=== PATIENT | female | born 1980 | race Caucasian/White ===

== ENCOUNTER → 2017-11-17 08:13 | Outpatient (CLI) | payer BC, OTHER, SELFPAY ==
--- NOTE | 2017-11-17 | IMM_PTH ---
PATIENT: MEMO MARQUEZ LOC: [facility] U#:[id number] AGE/SX: 45/F ROOM: RE11/17/[address]: Dr. Owen Cleary MD : 1980 BED: DIS: SPEC #: [id number] RECD: 11/21/17 10:41 STATUS: SONU REGrecia #: [id number] TI: 11/17/17 00:[address]: Owen Cleary DEPT: IMMUNOHISTOCHEMISTRY RECD BY: Tova Pfeiffer ENTERED: 11/21/17 10:42 SP TYPE: IMMUNO OTHR DR: No Primary Care Phys Tissues: A - Uterine cervix, NOS B - Endocervical Procedures: p16 (initial) KI-67 (add) PHYSICIAN & INSTITUTION [place] [address] SPECIMEN INFORMATION: Tissue Source: A ? Cervical biopsy 6 o?clock, B - ECC Clinical Info: R87.612 Specimen Number: [id number] CPT code: 70971 x2, 42039 x2 METHODOLOGY: Deparaffinized sections of prefer/formalin-fixed tissue or PAP/DQ stained slides are incubated with monoclonal/polyclonal antibodies/oligonucleotide probes. Localization is made via biotin free immunoperoxidase method. Appropriate controls are performed and reacted as expected. Results on target cell population are indicated in the following table: RESULTS: ANTIBODY / CLONE RESULT Block A P16 (E6H4) positive, focal minimal patchy staining Ki-67 (30-9) positive, low Block B P16 (E6H4) negative Ki-67 (30-9) negative These tests were developed and their performance characteristics determined by [facility]. They may not have been cleared or approved by the U.S. Food and Drug Administration. The FDA has determined that such clearance or approval is not necessary. INTERPRETATION: A. Cervix at 6 o?clock, biopsy: Focal changes suspicious for HPV cytopathic effects. B. ECC: Detached and unoriented fragments of squamous epithelium with focal changes suspicious for HPV cytopathic effects. SJ:marisa 11/22/17
--- NOTE | 2017-11-17 15:00 | CER_PTH ---
PATIENT: MEMO MARQUEZ LOC: [facility] U#:[id number] AGE/SX: 45/F ROOM: RE11/17/[address]: Dr. Owen Cleary MD : 1980 BED: DIS: SPEC #: [id number] RECD: 11/17/17 18:11 STATUS: SONU EDMAR #: [id number] TI: 11/17/17 15:[address]: Owen Cleary DEPT: SURGICAL PATHOLOGY RECD BY: Galdino Cantu ENTERED: 11/20/17 08:10 SP TYPE: CERV OTHR DR: No Primary Care Phys Tissues: A - Uterine cervix, NOS B - Endocervical Procedures: Surgery Specimen Level IV HEADER OPERATION: Colposcopy PRE-OP DIAGNOSIS: R87.612 TISSUE SUBMITTED: A ? Cervical biopsy 6 o?clock, B - ECC MICROSCOPIC DIAGNOSIS A. Cervix, 6 o?clock, biopsy: Fragment of squamous mucosa with focal changes suspicious for HPV cytopathic effects. See comment. B. ECC: Detached and unoriented fragment of squamous epithelium with focal changes suspicious for HPV cytopathic effects. Fragments of benign endocervical epithelium and mucosa with mild chronic inflammation. SJ:rg 11/21/17 COMMENT A & B. Immunohistochemistry ([id number]) for surrogate HPV marker (p16) supports the above diagnosis. Please make reference to previous specimen ([id number]) cervix at 12 o?clock, biopsy with diagnosis of mild squamous dysplasia. Case has been reviewed in consultation with Dr. Douglas who concurs with the above diagnosis. IDC:AM MICROSCOPIC DESCRIPTION Slides are reviewed. GROSS DESCRIPTION A - Received in fixative is one container labeled with the patient's name and designated cervical biopsy 6 o'clock. The specimen consists of multiple irregular fragments of light segovia soft tissue that in aggregate measure 1.2 x 0.3 x <0.1 cm. The specimen is totally submitted in one cassette. B - Received in fixative is one container labeled with the patient's name and designated ECC. The specimen consists of light segovia mucoid material that in aggregate measure 2 x 2 x <0.1 cm. The specimen is totally submitted in one cassette. / AM:marisa 11/20/17 TC:5 CPT: 83503 x2
== END ==
PROVIDERS: Visit Provider Obstetrics & Gynecology
DX: R87.612 Low grade squamous intraepithelial lesion on cytologic smear of cervix (LGSIL) (principal)
CPT/HCPCS: 88305; 88341; 88342

== ENCOUNTER → 2018-05-11 15:45 | Outpatient (CLI) | payer BC, MEDICAID, SELFPAY ==
[2018-05-18 13:37] LABS: HPV Reflexed? NOT INDICATED
== END ==
PROVIDERS: Visit Provider Obstetrics & Gynecology
DX: R87.612 Low grade squamous intraepithelial lesion on cytologic smear of cervix (LGSIL) (principal)
CPT/HCPCS: 88175; G0145

== ENCOUNTER → 2020-09-21 11:23 | Outpatient (CLI) | payer BC, SELFPAY ==
[2016-12-30 16:58] VITALS: BMI 42.4
[2020-09-22 20:07] LABS: Chlamydia By Nucleic Acid AMP Negative (Negative)
[2020-09-22 20:19] LABS: Gonococcus By Nucleic Acid AMP Negative (Negative)
[2020-09-23 21:45] LABS: HPV APTIMA, High Risk Negative (Negative)
== END ==
PROVIDERS: Visit Provider Obstetrics & Gynecology
DX: Z12.4 Encounter for screening for malignant neoplasm of cervix (principal); Z11.3 Encounter for screening for infections with a predominantly sexual mode of transmission
CPT/HCPCS: 87491; 87591; 87624; 88175; G0145

== ENCOUNTER 2021-05-15 15:57 | Emergency (ER) | payer BC, SELFPAY ==
[2021-05-15 15:59] VITALS: BP 140/95; PULSE 102; RESP 14; TEMP 36.6; O2SAT 97; BMI 38.2
--- NOTE | 2021-05-15 16:49 | EX.ED.VIS.PS ---
HPI HPI - Psych History of Present Illness Chief Complaint: Anxiety Informant: patient Narrative Narrative: Patient presents with anxiety and panic attack. She has had a history of this before. She was on meds about 5 years ago. She admits that she tried to overdose on these so they were stopped. She does not remember even what it was. She was on meds for depression until December. She weaned herself off that. But she has been doing well. She does not know why she is very anxious. She had some mild symptoms last night. They went away. They are now back worse today. She is not having chest pain. She feels sometimes a little tight breathing but very mild. She just states she feels anxious and racing thoughts. She is not suicidal or homicidal. PFSH PFSH Home Medications vit,[id number] [Prenatabs FA] 1 tab PO DAILY 10/05/16 [History Last Taken 10/18/16] Ibuprofen [Motrin] 800 mg PO TID PRN PRN #40 tab 01/01/17 [Rx Last Taken Unknown] docusate sodium [Colace] 100 mg PO BID PRN PRN #60 capsule 01/01/17 [Rx Last Taken Unknown] oxycodone 1 - 2 tab PO Q4H PRN PRN #30 tablet 01/01/17 [Rx Last Taken Unknown] hydroxyzine pamoate [Vistaril] 25 mg PO Q6H PRN #20 cap 05/15/21 [Rx Last Taken Unknown] Allergy/AdvReac Type Severity Reaction Status Date / Time adhesive tape Allergy Other Verified 05/15/21 15:59 ceftriaxone [From Rocephin] Allergy Rash Verified 05/15/21 15:59 codeine Allergy Other Verified 05/15/21 15:59 Social History Smoking Status: Former smoker ROS ROS ED Constitutional Constitutional ED: Denies chills or fever(s) Eyes Eyes: Denies blurry vision ENT ENT ED: Denies rhinorrhea Cardiovascular Cardiovascular: Reports palpitations; Denies chest pain Respiratory/Chest Respiratory/Chest: Denies cough or dyspnea Gastrointestinal Gastrointestinal: Denies abdominal pain, nausea or vomiting Genitourinary Genitourinary ED: Denies dysuria Musculoskeletal Musculoskeletal: Denies arthralgias or myalgias Integumentary Denies rash Neurologic Neurologic: Denies headache(s), paresthesias or weakness Hematologic/Lymphatic Hematologic/Lymphatic: Denies easy bleeding or easy bruising Allergic/Immunologic Allergic/Immunologic ED: Denies urticaria EXAM Physical Exam Const Vital Signs: 05/15/21 15:59 Temperature 97.9 F Temperature Source Temporal Pulse Rate 102 H Respiratory Rate 14 Blood Pressure 140/95 H Blood Pressure Mean 110 Pulse Ox 97 Oxygen Delivery Method Room Air Positive well nourished and well developed General Appearance ED: well developed and NAD HEENT normocephalic and atraumatic Eyes PERRL and EOMs intact bilaterally Resp normal respiratory effort and clear to auscultation bilaterally Auscultation: Negative for rales, rhonchi or wheezes Cardio no murmurs Rate: regular rate; Negative for tachycardic Rhythm: regular rhythm GI non-tender and non-distended Palpation: soft Back/Spine no CVA tenderness Neuro oriented x3 Sensorium / Orientation: alert; Negative for lethargic or stuporous Psych mental status grossly normal Psych Narrative: Patient does seem a little anxious. However she makes good eye contact. She is very appropriate. No flight of ideas. No paranoia. Skin Rashes: no rashes MDM MDM MDM Narrative Medical decision making narrative: This patient has a history of anxiety and panic. She is having an episode. I will give her Ativan here. My plan is to get her calm down with 1 or 2 doses of meds. I hope to then be able to get her home and will write for some Vistaril and have her follow-up for ongoing care. Patient is better after Ativan but not completely resolved. I will give her a bit of Vistaril here. We will get her home as planned. We discussed reasons to return and follow-up. Discharge Plan Triage Chief Complaint: Anxiety ED Provider: Bao Pepe Dx/Rx/DC Orders Clinical Impression: Panic attack Instructions: ED Anxiety Reaction Prescriptions: New hydroxyzine pamoate [Vistaril] 25 mg capsule 25 mg PO Q6H PRN (Reason: anxiety) Qty: 20 RF: 0 No Action vit,[id number] [Prenatabs FA] 1 TABLET tablet 1 tab PO DAILY RF: 0 docusate sodium [DOK] 100 MG capsule 100 mg PO BID PRN PRN (Reason: Constipation) Qty: 60 RF: 0 oxycodone 5 MG tablet 1 - 2 tab PO Q4H PRN PRN (Reason: Pain) Qty: 30 RF: 0 Ibuprofen [Motrin] 800 MG tablet 800 mg PO TID PRN PRN (Reason: Pain) Qty: 40 RF: 0 Primary Care Provider: Srini Simpson Referrals: Peña Holman MD [STAFF PHYSICIAN] - 2 Days Care Physician,No Primary [NON-STAFF] - Disposition Disposition: Home, Self Care
--- NOTE | 2021-05-15 17:09 | ED.RN ---
felt that panic attack coming on since last night. pt with chest tightness diff breathing and shaking all over. hx of but off meds for 6 years
[2021-05-15] MEDS: hydrOXYzine PAM 25 MG Capsule PO (17:20)
== END 2021-05-15 17:28 | disposition home or self-care (01) ==
LOC: ED 17:04
PROVIDERS: Emergency Provider Emergency Medicine; PCP Family Medicine
DX: F41.0 Panic disorder [episodic paroxysmal anxiety] (principal); Z87.891 Personal history of nicotine dependence
CPT/HCPCS: 99282

== ENCOUNTER → 2024-09-06 | Outpatient (CLI) | payer OTHER, SELFPAY ==
--- NOTE | 2024-09-06 14:42 | CT_ITS ---
EXAM: CT MAXILLOFACIAL WITHOUT INTRAVENOUS CONTRAST CLINICAL INDICATION: Anosmia. Chronic sinusitis with polyposis. TECHNIQUE: Helically acquired images were obtained of the face without intravenous contrast. This CT exam was performed using one or more of the following dose reduction techniques: automated exposure control, adjustment of the mA and/or kV according to patient size, and/or use of iterative reconstruction technique. RADIATION DOSE: CTDIvol = 33.06 mGy, DLP = 842.11 mGy-cm COMPARISON: No relevant prior studies available. FINDINGS: BONES/JOINTS: Obstructed bilateral ostiomeatal units due to extensive mucosal thickening. No displaced fracture. No discrete lytic or blastic abnormalities. SOFT TISSUES: Unremarkable. No focal subcutaneous swelling. No discrete fluid collections. ORBITS: Unremarkable. Both globes are unremarkable. Extraocular muscles are normal. Retrobulbar fat appears unremarkable. SINUSES: Complete opacification of the ethmoid sinuses, sphenoid sinuses and frontal sinuses. Pronounced mucosal thickening of the maxillary sinuses. MASTOID AIR CELLS: Unremarkable as visualized. Clear. DENTAL: No acute findings. No periodontal osseous erosion. NASAL CAVITY/SEPTUM: Mild right nasal septal deviation. No obstructing mass or polyps along the nasal vault. CT/Sinus/Facial Bone IMPRESSION: 1. Pronounced chronic pansinusitis with obstructive bilateral ostiomeatal units due to mucosal thickening. 2. Mild right nasal septal deviation but no obstructing mass or polyps along the nasal vault. Electronically Signed: Pedro Dinh MD at 15:55 EST ,
== END | disposition home or self-care (01) ==
LOC: CT 14:32
PROVIDERS: PCP Family Medicine; Referring Provider Otolaryngology; Visit Provider Otolaryngology
DX: J32.9 Chronic sinusitis, unspecified (principal)
CPT/HCPCS: 70486

== ENCOUNTER 2024-10-07 12:24 | Day surgery (SDC) | payer OTHER, SELFPAY ==
[2024-10-07] VITALS (9 sets, daily range): BP systolic 108–146; BP diastolic 72–95; PULSE 68–84; RESP 16–20; TEMP 36.1–36.8; O2SAT 90–100; BMI 42.5
[2024-10-07] MEDS: Oxymetazoline 0.05% 1 SPRAY SPRAY.BTL NASAL (12:49)
[2024-10-07] MEDS: 0.9% Normal Saline (1000mL) 1,000 ML 15 ML IV (12:50)
--- NOTE | 2024-10-07 12:52 | PRE.ANES_ITS ---
ASA Classification* ASA Classification ASA Classification: 3 Assessment & Plan Anesthesia* Anesthesia Assessment Anesthesia Assessment: Discussed sedation and/or anesthesia options, risks, benefits, and alternatives with patient/parents/legal guardian/POA. Questions invited. The patient/parents/legal guardian/POA seems to understand and agrees to proceed with anesthesia plan. Reviewed the physical assessment, medical history, allergy history and patient home medications list prior to surgery/procedure/anesthetic and documented any changes. Performed airway and anesthesia risk assessments. Anesthesia Type Anesthesia Type: General Anesthesia Focused Assessment* Temperature: 98.3 F Pulse Rate: 84 Blood Pressure: 134/95 Respiratory Rate: 18 Pulse Ox: 100 Airway Assessment Mouth opens: >3 cm Mallampati Score: II Focused Labs Anesthesia Preop lab: CBC WBC 14.8 K/mm3 (4.4-11.0) H 01/01/17 05:45 RBC 3.46 M/mm3 (4.2-5.4) L 01/01/17 05:45 Hgb 10.1 g/dl (12.0-15.0) L 01/01/17 05:45 Hct 31.2 % (37-47) L 01/01/17 05:45 Plt Count 164 K/mm3 (150-450) 01/01/17 05:45 CHEMISTRY COAG Urine Test Pending 10/07/24 12:35 Pre-Assessment Diagnosis/Proposed Procedure Planned Operative Procedure(s): FESS WITH NAVIGATION Anesthesia History Anesthesia History - senior application software engineer: Anesthesia History - senior application software engineer Hx Hospitalization No 10/02/24 08:30 Any Problems With Anesthesia No 10/02/24 08:30 Cholinesterase deficiency No 10/02/24 08:30 You/Your Family Experience No 10/02/24 08:30 fever (hyperthermia) with Relationship Recent Exposure to Contagious No 10/07/24 12:45 Disease Does patient have nerve No 10/02/24 08:30 stimulator Patient instructed to have device shut off --Does patient have Pacemaker No 10/07/24 12:45 or ICD? When Was Last Pacemaker Check QUESTION #4 FULL TEXT: You/Your Family Experience fever (hyperthermia) with Anesthesia Last Oral Intake Last Oral intake: Last Oral Intake NPO since 21:00 10/07/24 12:45 Meds taken in AM with sips of water? Meds patient instructed to take am of surgery PONV PONV - senior application software engineer: PONV - senior application software engineer Female Yes 10/02/24 08:30 HX of Motion Sickness No 10/02/24 08:30 HX of N/V After Surgery No 10/02/24 08:30 Non-Smoker Yes 10/02/24 08:30 Duration of Surgery greater Yes 10/02/24 08:30 than 60 minutes Number of Risk Factors 3 10/02/24 08:30 PONV Score Moderate Risk 10/02/24 08:30 Height & Weight Height & Weight: Anesthesia: Height & Weight Height 5 ft 5 in 10/07/24 12:45 Weight: 116 kg 10/07/24 12:45 Body Mass Index (BMI) 42.5 10/07/24 12:45 Respiratory Assessment Respiratory Assessment - senior application software engineer: Respiratory Tract Infection Hx - senior application software engineer Hx Respiratory Tract Infection Yes: BRONCHITIS/RESOLVING 10/02/24 08:30 STOP Sleep Apnea STOP Sleep Apnea - senior application software engineer: STOP Sleep Apnea - senior application software engineer Hx Hypertension No 10/02/24 08:30 Hx Sleep Apnea No 10/02/24 08:30 CPAP BIPAP Do you snore loudly (louder No 10/02/24 08:30 than talking or can be heard Do you often feel tired/ No 10/02/24 08:30 fatigued/ sleepy during daytime? Has anyone observed you stop No 10/02/24 08:30 breathing during sleep? STOP Results Negative 10/02/24 08:30 QUESTION #5 FULL TEXT : Do you snore loudly (louder than talking or can be heard through closed doors)? Tobacco Use History Tobacco Use History - senior application software engineer: Tobacco Use History - senior application software engineer Tobacco Use Smoking Status Former smoker 10/02/24 08:30 Hx Tobacco Use No 10/02/24 08:30 Years Smoking Packs Smoked per Day Smoking Cessation Date was Yes - quit smoking within 15 10/02/24 08:30 within the last 15 years years Hx Smoking Cessation Date 10/23/13 10/02/24 08:30 Hx Smoking Cessation No 10/02/24 08:30 Counseling Hematologic Medial History Hematologic Hx - senior application software engineer: Hematologic Medical Hx - director of officiating Hx of Blood Transfusion No 10/02/24 08:30 Hx of Transfusion in last 3 No 10/02/24 08:30 Months Date of Last Transfusion (if within last 3 months) Ever experience any problems No 10/02/24 08:30 with transfusion(s)? Specify any problems Hx of Preganancy in last 3 No 10/02/24 08:30 Months Nurse Filling Out Transfusion DSCHRIBER 10/02/24 08:30 & Questions: Date: 10/02/24 10/02/24 08:30 Time: 08:32 10/02/24 08:30 Patient unable to answer at this time (ie. confused, unrespo /Reproduction History /Reproductive History - senior application software engineer: /Reproductive Hx- senior application software engineer Hx Now No 10/02/24 08:30 Gestational Age (in weeks): EDC: Hx Hx Para Hx Section SAB No 10/02/24 08:30 Active Medications Active Medications: Current Medications Generic Name Dose Route Start Last Admin Trade Name Freq PRN Reason Stop Dose Admin Sodium Chloride 1,000 mls @ 15 mls/hr 10/07/24 12:35 10/07/24 12:50 IV 10/13/24 01:54 15 mls/hr .Q48H LEONARDA Administration Protocol Oxymetazoline HCl 0 spray 10/07/24 14:20 10/07/24 12:49 Oxymetazoline 0.05% 1 Ovando Ovando.Btl NASAL 10/07/24 14:21 2 puff PREOP ONE Administration PFSH Medical History Wears contact lenses Arthritis Fatty liver Migraine headache Difficulty swallowing delivery delivered Depression Anxiety RSD (reflex sympathetic dystrophy) Former smoker Home Medications ?Medication ?Instructions ?Recorded ?Last Taken ?Type albuterol sulfate 90 mcg/actuation 2 puff inhalation Q4H PRN PRN 10/02/24 10/03/24 History aerosol inhaler wheezing cetirizine 10 mg capsule (Zyrtec) 10 mg PO DAILY ALLERGIES 10/02/24 10/06/24 History cholecalciferol (vitamin D3) 125 125 mcg PO DAILY 10/02/24 10/06/24 History mcg (5,000 unit) tablet (Vitamin D3) epinephrine 0.3 mg/0.3 mL 0.3 ml IM PRN PRN anaphylaxis 10/02/24 Unknown History injection, auto-injector fluticasone propionate 50 1 spray intranasal DAILY ALLREGIES 10/02/24 10/06/24 History mcg/actuation nasal spray,suspension levonorgestrel 20.4 mcg/24 hr (up 1 device intrauterine DAILY 10/02/24 Unknown History to 8 yrs) 52 mg intrauterine device (Liletta) topiramate 25 mg tablet 50 mg PO QHS 10/02/24 10/06/24 History Allergy/AdvReac Type Severity Reaction Status Date / Time bee pollen Allergy Severe Anaphylaxis Verified 10/07/24 12:43 adhesive tape Allergy Other Verified 10/07/24 12:43 ceftriaxone (From Rocephin) Allergy Rash Verified 10/07/24 12:43 codeine Allergy Other Verified 10/07/24 12:43 animal dander AdvReac Intermediate Other Verified 10/02/24 08:26 birch AdvReac Intermediate Other Verified 10/07/24 12:43 Environmental Allergies: AdvReac Intermediate Other Verified 10/07/24 12:43 Uncoded (dust mites) Surgical History Hx of wisdom tooth extraction Hx of colonoscopy Hx laparoscopic cholecystectomy History of removal of ovarian cyst History of appendectomy Social History Smoking Status: Former smoker Review of Systems (Anesthesia) ROS Narrative System reviewed and no additional complaints, except as documented.
[2024-10-07 12:53] LABS: Internal QC Validated? YES +Cl - CLEAR BKGD; Pregnancy, Urine Negative Negative
--- NOTE | 2024-10-07 14:00 | ETH_PTH ---
PATIENT: MEMO MARQUEZ LOC: [facility] U#:[id number] AGE/SX: 44/F ROOM: RE10/07/[address]: Dr. J Carlos Galo MD : 1980 BED: DIS: 10/07/2024 SPEC #: [id number] RECD: 10/08/24 07:59 STATUS: SONU HYATT #: [id number] TI: 10/07/24 14:[address]: J Carlos Galo DEPT: SURGICAL PATHOLOGY RECD BY: Olga Iniguez ENTERED: 10/08/24 09:28 SP TYPE: ETH TISS OTHR DR: Dr. Srini Simpson MD Tissues: A - Ethmoid sinus, NOS B - Ethmoid sinus, NOS Procedures: Surgery Specimen Level IV HEADER OPERATION: Functional endoscopic sinus surgery PRE-OP DIAGNOSIS: Chronic sinusitis with polyposis TISSUE SUBMITTED: A- Left sinus contents, B- Right sinus contents MICROSCOPIC DIAGNOSIS A. Left sinus contents: Fragments of respiratory mucosa with chronic inflammation and bone. B. Right sinus contents: Fragments of respiratory mucosa with chronic inflammation and bone. . 10/11/2024 MICROSCOPIC DESCRIPTION Slides are reviewed. GROSS DESCRIPTION A. Received in fixative is one container labeled with the patient's name and designated Left sinus contents. The specimen consists of multiple fragments of pink hemorrhagic soft tissue mixed with possible fragments of bone that in aggregate measure 2.5 x 1.5 x 0.2 cm. The specimen is totally submitted in one cassette after decalcification.B. Received in fixative is one container labeled with the patient's name and designated Right sinus contents. The specimen consists of multiple fragments of pink hemorrhagic soft tissue mixed with possible fragments of bone that in aggregate measure 2.5 x 1.5 x 0.2 cm. The specimen is totally submitted in one cassette after decalcification. . 10/08/2024 TC:3 CPT:53280l6,58804q3
--- NOTE | 2024-10-07 16:23 | DS.PCM_ITS ---
Providers Primary Care Physician: Dr. Srini Simpson MD Reason For Visit: Functional Endoscopoic Sinus Surgery Medications at Discharge Home Medications albuterol sulfate 90 mcg/actuation aerosol inhaler 2 puff inhalation Q4H PRN PRN wheezing 10/02/24 cetirizine 10 mg capsule (Zyrtec) 10 mg PO DAILY ALLERGIES 10/02/24 cholecalciferol (vitamin D3) 125 mcg (5,000 unit) tablet (Vitamin D3) 125 mcg PO DAILY 10/02/24 epinephrine 0.3 mg/0.3 mL injection, auto-injector 0.3 ml IM PRN PRN anaphylaxis 10/02/24 fluticasone propionate 50 mcg/actuation nasal spray,suspension 1 spray intranasal DAILY ALLREGIES 10/02/24 levonorgestrel 20.4 mcg/24 hr (up to 8 yrs) 52 mg intrauterine device (Liletta) 1 device intrauterine DAILY 10/02/24 topiramate 25 mg tablet 50 mg PO QHS 10/02/24 Weight / BMI Weight Weight: 116 kg Body Mass Index (BMI) 42.5 ABG / Lab / Microbiology Data Laboratory: Laboratory Results - last 24 hr 10/07/24 12:35: Urine Test Negative D/C Instructions Discharge Diet: No restrictions Additional Dressing/Incision Instructions: No nose blowing DC O2, CPAP, BIPAP Needs Additional Home O2 Discharge instructions: No DC home with Oxygen: No Additional Instructions: Finish steroids. Start antibiotic tonight. Start saline irrigation tomorrow. Irrigate 4x/day. Please Follow Up With: J Carlos Galo MD When: next week Meaningful Use Info Meaningful Use Meaningful Use Diagnoses (Choose all that apply): None applicable Ischemic Stroke Statin Dosing Therapy Reference: STATIN DOSE THERAPY REFERENCE: * Patients > 75 years receive moderate or high dose statin therapy. * Patients 75 years or YOUNGER should receive HIGH intensity statin dose unless contraindicated. You will be required to document reason for non-treatment if statin daily dose does not meet guidelines. HIGH DOSE STATIN THERAPY DAILY Atorvastatin > than or = to 40 mg Rosuvastatin > than or = to 20 mg Amlodipine + Atorvastatin > than or = to 2.5/40 mg Ezetimibe + Simvastatin 10/80 mg Simvastatin 80mg Discharge Plan Admission Attending Provider: J Carlos Galo Primary Care Provider: Srini Simpson Instructions Print Language: Divehi Discharge Orders/Prescriptions Prescriptions: No Action epinephrine 0.3 mg/0.3 mL auto-injector 0.3 ml IM PRN PRN (Reason: anaphylaxis) albuterol sulfate 90 mcg/actuation HFA aerosol inhaler 2 puff inhalation Q4H PRN PRN (Reason: wheezing) topiramate 25 mg tablet 50 mg PO QHS fluticasone propionate 50 mcg/actuation spray,suspension 1 spray intranasal DAILY Rx Instructions: administer into each nostril Zyrtec 10 mg capsule 10 mg PO DAILY cholecalciferol (vitamin D3) [Vitamin D3] 125 mcg (5,000 unit) tablet 125 mcg PO DAILY Liletta 20.4 mcg/24 hr (8 yrs) 52 mg intrauterine device 1 device intrauterine DAILY Referrals / Follow Up: Srini Simpson MD [Primary Care Provider] - Disposition Disposition (needs filled in before D/C Order can be placed): Home, Self Care
--- NOTE | 2024-10-07 16:24 | PCM.OPRPT ---
Operative Report (Standard) Operative Information Date of Procedure: 10/07/24 Pre-Operative Diagnosis: chronic sinusitis with polyposis Post-Operative Diagnosis: same Surgery/Procedure Performed: Bilateral total ethmoidectomy Bilateral maxillary antrostomy Bilateral sphenoidotomy Use of navigation fire patroller: No Type of Anesthesia: General RN Documented Start/Stop Times: Operation Date: 10/07/24 14:00 Case Time Into Pre-Op 10/07/24 12:33 Out of Pre-Op 10/07/24 16:23 Anesthesia Start 10/07/24 16:26 Into Room 10/07/24 16:26 Procedure Start 10/07/24 16:47 Procedure Start Time: 16:47 Procedure Stop Time: 17:48 Select all DRAINS/GRAFTS/IMPLANTS that apply: None Estimated Blood Loss: minimal Specimen collected: Yes Description of specimen(s) removed: sinus contents Description of surgery: The patient was taken to the operating room on 10/07/2024. The patient was placed in the supine position on the operating table. The patient was given sufficient general endotracheal anesthesia. The head of bed was elevated 30 degrees. The navigation system was placed and verified per protocol and found to be accurate. 0 and 30 degrees rigid nasal endoscopes were used throughout the entire case. The middle turbinate uncinate process and polyps were injected with 1% lidocaine with epinephrine bilaterally. The right middle turbinate was medialized with a [place] elevator. Polyp was removed from the middle meatus using a sinus shaver. A ball-tipped sinus seeker was placed into the patient's maxillary sinus. A backbiter was used to create a maxillary antrostomy. The uncinate process was taken down using a microdebrider. Next, the ethmoid bulla was opened with a small curette. Anterior and posterior ethmoidectomy were then carried out using curette, sinus shaver and 45 degree Blakesley Richi forceps. Ethmoid cells were verified for relation to the skull base and orbit prior to being entered with the navigation system. The front face of the sphenoid was opened with a suction. Edward-Cut forceps were then used to widen the opening. I then placed Afrin pledgets into the sinonasal cavity. Next attention was turned to the left side. The middle turbinate was medialized with a [place] elevator. A large polyp was removed from the middle meatus using a sinus shaver. The maxillary antrostomy was created with a backbiter. The uncinate process was taken down using a sinus shaver. The ethmoid bulla was opened with a small curette. Anterior posterior ethmoidectomy were then carried out using a sinus shaver curette and Bl[place]riley Richi forceps. Ethmoid cells were verified for relation to the skull base and orbit prior to being entered with the navigation system. There was a polyp occluding the natural sphenoid ostia. This was removed with a sinus shaver. The sphenoid was then opened on the left side using a sinus shaver and confirmed with navigation. Hemostasis was then achieved using Afrin pledgets. The pledgets were then removed bilaterally and Tabitha powder was applied bilaterally for absolute hemostasis. The procedure was then terminated. The patient was then awoken and brought to the recovery room in stable condition blood loss approximately 30 cc, replacement none. Sponge, needle, instrument count were correct at the end of the procedure. Surgical Findings: polyps bilaterally Complications Complications: No
[2024-10-07] MEDS: Oxymetazoline 0.05% 1 SPRAY SPRAY.BTL 15 SPRAY (17:24)
[2024-10-07] MEDS: Lidocaine 1% /Epi 1:100 (20ml) 20 ML Vial (17:25)
--- NOTE | 2024-10-07 17:59 | PCM.POST.ANE ---
Anesthesia: Postop Eval I Current Vital Signs Temperature: 98 F Pulse Rate: 84 Blood Pressure: 146/95 Respiratory Rate: 20 Pulse Ox: 93 Assessment Airway patent: Yes Spontaneous unlabored respirations: Yes nausea: No Vomiting: No Anesthesia Complication: No Fluid Hydration Crystalloid volume administer (ml): 1,000 Total IV fluid infused: 1,000 Progress Note Anesthesia document: Postop Eval 1 completed: Yes
--- NOTE | 2024-10-08 18:59 | POSTOPAN2_ITS ---
Anesthesia Postop Eval I Sum Postop Eval Completion status Anesthesia document: Postop Eval 1 completed: Yes Anesthesia Postop Eval I Summary Anesthesia Postop Eval I Summary: Anesthesia Postop Eval I: Assessment Summary Airway patent Yes 10/07/24 17:59 ACCOUNTING MACHINE OPERATOR.CSIR Spontaneous unlabored Yes 10/07/24 17:59 ACCOUNTING MACHINE OPERATOR.CSIR respirations Mental status nausea No 10/07/24 17:59 ACCOUNTING MACHINE OPERATOR.CSIR Vomiting No 10/07/24 17:59 ACCOUNTING MACHINE OPERATOR.CSIR Anesthesia Postop Eval I: Fluid Summary Crystalloid volume administer 1,000 10/07/24 17:59 ACCOUNTING MACHINE OPERATOR.CSIR (ml) Colloids volume administered ( ml) Blood Product volume administered (ml) Total IV fluid infused 1,000 10/07/24 17:59 ACCOUNTING MACHINE OPERATOR.CSIR Anesthesia Postop Eval I: Summary Notes Anesthesia Complication No 10/07/24 17:59 ACCOUNTING MACHINE OPERATOR.CSIR Anesthesia Complication Comment: Post-operative progress note Anesthesia: Postop Eval II Evaluation Mental status: Awake Pain Level: 1 nausea: No Vomiting: No
--- NOTE | 2024-10-08 18:59 | PCM.POSTANE2 ---
Anesthesia Postop Eval I Sum Postop Eval Completion status Anesthesia document: Postop Eval 1 completed: Yes Anesthesia Postop Eval I Summary Anesthesia Postop Eval I Summary: Anesthesia Postop Eval I: Assessment Summary Airway patent Yes 10/07/24 17:59 SALES CONSULTANT INSURANCE.CSIR Spontaneous unlabored Yes 10/07/24 17:59 SALES CONSULTANT INSURANCE.CSIR respirations Mental status nausea No 10/07/24 17:59 SALES CONSULTANT INSURANCE.CSIR Vomiting No 10/07/24 17:59 SALES CONSULTANT INSURANCE.CSIR Anesthesia Postop Eval I: Fluid Summary Crystalloid volume administer 1,000 10/07/24 17:59 SALES CONSULTANT INSURANCE.CSIR (ml) Colloids volume administered ( ml) Blood Product volume administered (ml) Total IV fluid infused 1,000 10/07/24 17:59 SALES CONSULTANT INSURANCE.CSIR Anesthesia Postop Eval I: Summary Notes Anesthesia Complication No 10/07/24 17:59 SALES CONSULTANT INSURANCE.CSIR Anesthesia Complication Comment: Post-operative progress note Anesthesia: Postop Eval II Evaluation Mental status: Awake Pain Level: 1 nausea: No Vomiting: No
== END 2024-10-07 19:20 | disposition home or self-care (01) ==
LOC: SDC 12:24 → AC 12:26
PROVIDERS: Anesthesiology; PCP Family Medicine; Referring Provider Otolaryngology; Visit Provider Otolaryngology
PROC: (CPT 31256; principal; 2024-10-07 13:30)
DX: J32.9 Chronic sinusitis, unspecified (principal); J30.1 Allergic rhinitis due to pollen; J33.9 Nasal polyp, unspecified; J30.81 Allergic rhinitis due to animal (cat) (dog) hair and dander; R43.0 Anosmia
CPT/HCPCS: 31256; 31287; 00160; 81025; 88305; J2405